=== PATIENT | female | born 1995 | race African-American/Black ===

== ENCOUNTER 2016-10-13 19:03 | Emergency (ER) | payer BC ==
[~2016-10-13] VITALS: Ht 162.6 cm; Wt 58.5 kg
[2016-10-13 19:10] VITALS: TEMP 36.5; Ht 162.6 cm; Wt 58.5 kg
--- NOTE | 2016-10-13 19:59 | EMERGENCY ROOM VISIT NOTE ---
ED Visit Note First contact with patient: 19:28 CHIEF COMPLAINT: Skin rash on left buttocks from broken cell phone case HISTORY OF PRESENT ILLNESS: Patient is a 21-year-old -[place] female who presents the emergency department accompanied by a female friend for evaluation of a rash on her buttocks that she noticed this afternoon. Patient relates that she had a cover on her cell phone that had glitter suspended in a liquid. She had the cell phone in her left back pocket of her jeans, and was driving to [employer] from [place] (2 hours). While driving, she removed the phone from her pocket and noted that it felt wet. She determined that the cell phone case had leaked. She noted that the back of her jeans were wet. When she arrives here at her friend's apartment, she changed her clothes, and noted a red, slightly warm, raised rash on her left buttocks, where the liquid from the cell phone case had come into contact with her skin. She rinsed the area with warm water in a shower for roughly 20 minutes. She complains that the area feels slightly itchy and burning. She has no symptoms elsewhere. Denies new exposure to any potential allergens such as new medications, clothes, detergents, cosmetic products, or foods. She has never had symptoms similar to this previously. She did some Internet research, which did turn off the other people would experience similar issues with broken cell phone cases containing this liquid glitter. REVIEW OF SYSTEMS: Review of systems as per HPI. All other systems reviewed were negative. At least 6 systems reviewed. PMH: Electronic medical records are reviewed and summarized as above/below. See Problem List.. SOCIAL HISTORY: Patient attends [employer], she is originally from [place]. She is visiting a friend here locally for the weekend. She does not smoke or drink alcohol. PHYSICAL EXAM: Vital Signs: See nurses' notes. CONSTITUTIONAL: Patient is a well-appearing 21-year-old -[place] female who is awake and alert and in no acute distress. INTEGUMENTARY: The patient has a rectangular shaped area of erythema, slight swelling, slight warmth noted on her left buttock, consistent with where the liquid from her case came into contact with her skin. Skin is intact, no vesicles, petechiae, bullae or hemorrhagic lesions are noted. ED COURSE: The patient was seen and evaluated as above. She appears to have a localized contact dermatitis from the liquid from her broken cell phone case. She does not have any evidence for skin sloughing, skin is intact without infections, there is no evidence of urticaria or petechiae. Local care was advised with topical antihistamine and steroid cream. It was not felt that there was any indication for systemic antibiotics or steroids. She can continue her typical topical regimen including soaps and lotions. She was advised to follow-up with her primary care provider for further care and management of her symptoms are not improving. Problem List Medical Problems: (1) Acid reflux Status: Chronic (2) Ovarian cyst Status: Chronic Vital Signs Date Time Temp Pulse Resp B/P (MAP) Pulse Ox O2 Delivery O2 Flow Rate FiO2 10/13/16 20:20 88 16 128/91 100 10/13/16 19:13 98 Room Air 10/13/16 19:10 36.5 82 18 133/88 100 Room Air Departure Information Impression Primary Impression: Contact dermatitis Referrals No Doctor, Assigned (PCP) Forms HOME CARE DOCUMENTATION FORM, IMPORTANT VISIT INFORMATION Patient Instructions [facility] Additional Instructions May use an over the counter topical hydrocortisone cream and/or antihistamine cream as needed. Diphenhydramine(Benadryl) 25mg: use 25 to 50 mg as needed every six hours for swelling, itching, or hives. This medication is sedating and will cause drowsiness. Avoid alcohol, operating machinery or dangerous equipment, working on ladders or roofs, DRIVING, or situations where being under the influence may be dangerous. Zantac 75: Take two pills twice a day along with Benadryl as needed for swelling , itching, or hives. Most people know this for its affect on the stomach, but it also acts similar to, but less potent than Benadryl for allergic reactions. Both the Benadryl and the Zantac are available [id number]. Read all the package inserts or medication information paperwork provided. If you have any questions or concerns call your primary provider, pharmacist or the ER for assistance. Continue current medications. Return to the emergency department for worsening of your rash, swelling of your face, lips, tongue, or throat, difficulty breathing, vomiting, or as needed. Follow-up with your primary care physician in 2-3 days for a recheck of your current condition.
[2016-10-13 20:20] VITALS: BP 128/91; PULSE 88; O2SAT 100
== END 2016-10-13 20:15 | disposition home or self-care (01) ==
LOC: C.EDB 19:04 → C.EDD 20:15
DX: L25.9 Unspecified contact dermatitis, unspecified cause (principal); K21.9 Gastro-esophageal reflux disease without esophagitis